=== PATIENT | female | born 1980 | race Caucasian/White ===

== ENCOUNTER 2020-06-04 11:09 | Emergency (ER) | payer SELFPAY ==
--- NOTE | 2020-06-04 11:30 | EDM.PDOC ---
ED HPI GENERAL MEDICAL PROBLEM - General Stated Complaint: SORE NECK FACE Time Seen by Provider: 06/04/20 11:15 Source of Information: Reports: Patient History Limitations: Reports: No Limitations - History of Present Illness INITIAL COMMENTS - FREE TEXT/NARRATIVE: Patient presented to the ED because of a pimple on her left jaw, left nose and sore throat. She is crying because of the pain and is afraid of MRSA. She was diagnosed with MRSA cellulitis 2 weeks ago. - Related Data Allergies Allergy/AdvReac Type Severity Reaction Status Date / Time No Known Allergies Allergy Verified 01/05/14 14:58 Home Meds: Home Meds Acetaminophen [Tylenol] 1,000 mg PO ASDIRECTED PRN 06/24/15 [History] Ibuprofen [Motrin] 800 mg PO Q8H PRN #0 tablet 06/30/15 [Rx] Amoxicillin 875 mg PO BID #20 tablet 06/04/20 [Rx] Ibuprofen 800 mg PO Q8H #30 tablet 06/04/20 [Rx] Sulfamethoxazole/Trimethoprim [Bactrim Ds Tablet] 1 each PO BID #20 tablet 06/04/20 [Rx] traMADol [Ultram] 100 mg PO Q8H PRN #15 tablet 06/04/20 [Rx] Past Medical History - Past Health History Medical/Surgical History: Denies Medical/Surgical History Other H[employer] History: - Past Surgical History Other GI Surgeries/Procedures: Social & Family History - Family History Family Medical History: Noncontributory - Caffeine Use Caffeine Use: Reports: Energy Drinks, Soda ED ROS GENERAL - Review of Systems Review Of Systems: See Below Constitutional: Reports: No Symptoms HEENT: Reports: No Symptoms Respiratory: Reports: No Symptoms Cardiovascular: Reports: No Symptoms Endocrine: Reports: No Symptoms GI/Abdominal: Reports: No Symptoms : Reports: No Symptoms Musculoskeletal: Reports: No Symptoms Skin: Reports: Erythema Neurological: Reports: No Symptoms Psychiatric: Reports: No Symptoms Hematologic/Lymphatic: Reports: No Symptoms ED EXAM, GENERAL - Physical Exam Exam: See Below Exam Limited By: No Limitations General Appearance: Alert, No Apparent Distress Eye Exam: Bilateral Eye: PERRL Ears: Normal External Exam, Normal Canal, Hearing Grossly Normal Nose: Other (tny pimple on left nose ) Throat/Mouth: Other (pharyngeal injection, no exudates) Head: Atraumatic Neck: Normal Inspection Respiratory/Chest: No Respiratory Distress Cardiovascular: Normal Peripheral Pulses, Regular Rate, Rhythm, No Edema, No Gallop GI/Abdominal: Normal Bowel Sounds, Soft, Non-Tender, No Organomegaly Extremities: Normal Inspection, Normal Range of Motion, Non-Tender Neurological: Alert, Oriented, CN II-XII Intact, Normal Cognition, Normal Gait Psychiatric: Normal Affect, Normal Mood Skin Exam: Warm, Intact, Normal Color, No Rash Course - Vital Signs Text/Narrative:: Reassurance Departure - Departure Time of Disposition: 11:30 Disposition: Home, Self-Care 01 Condition: Good Clinical Impression: Cellulitis, Acute pharyngitis - Discharge Information Prescriptions: Amoxicillin 875 mg PO BID #20 tablet Sulfamethoxazole/Trimethoprim [Bactrim Ds Tablet] 1 each PO BID #20 tablet Ibuprofen 800 mg PO Q8H #30 tablet traMADol [Ultram] 100 mg PO Q8H PRN #15 tablet PRN Reason: Pain Instructions: Cellulitis, Adult, [id number], Pharyngitis, [id number] Additional Instructions: Please read discharge instructions on sore throat and cellulitis Take Bactrim DS 1 tablet twice daily for 10 days Amoxicillin 875 mg twice daily for 10 days Tramadol 100 mg with tylenol 1000 mg and ibuprofen 800 mg every 8 hours as n eeded for pain. Take them all at the same time for better pain relief. Follow up as needed
[2020-06-04 12:14] VITALS: BP 156/107; PULSE 78
== END 2020-06-04 11:47 | disposition home or self-care (01) ==
LOC: FB.ED 11:09
DX: J02.9 Acute pharyngitis, unspecified (principal); J34.0 Abscess, furuncle and carbuncle of nose
CPT/HCPCS: 99282